=== PATIENT | male | born 2000 | race Two or more races ===

== ENCOUNTER 2021-01-21 13:13 | Emergency (ER) | payer OTHER ==
[~2021-01-21] VITALS: Ht 167.6 cm; Wt 84.6 kg
[2021-01-21 13:22] VITALS: BP 133/65
[2021-01-21] MEDS ORDERED: LIDOCAINE-MPF 1%, 5ML INFIL ONE (13:30)
[2021-01-21] MEDS ORDERED: DIPH,PERTUSS(ACELL),TET VAC/PF 0.5 ML IM-VACC ONE ×2 (13:30→14:03)
[2021-01-21] MEDS ORDERED: LIDOCAINE-MPF 1%, 5ML ONE (15:18)
[2021-01-21] MEDS ORDERED: NEOSPORIN OINT. PKT 1 PACKET ONE (15:49)
== END 2021-01-21 16:07 | disposition home or self-care (01) ==
LOC: ED 16:00
DX: S60.551A Superficial foreign body of right hand, initial encounter (principal); F17.210 Nicotine dependence, cigarettes, uncomplicated; X58.XXXA Exposure to other specified factors, initial encounter; Y93.89 Activity, other specified; Y92.89 Other specified places as the place of occurrence of the external cause; Y99.8 Other external cause status
CPT/HCPCS: 10120; 90471; 90715; 99285